=== PATIENT | male | born 1990 | race Caucasian/White ===

== ENCOUNTER 2018-07-27 13:31 | Emergency (ER) | payer OTHER ==
[~2018-07-27] VITALS: Ht 170.1 cm; Wt 60.8 kg
[2018-07-27] MEDS ORDERED: NAPROSYN500 MG PO (14:14)
== END 2018-07-27 13:47 | disposition home or self-care (01) ==
LOC: ED 13:31
DX: S61.411A Laceration without foreign body of right hand, initial encounter (principal); R03.0 Elevated blood-pressure reading, without diagnosis of hypertension; W45.8XXA Other foreign body or object entering through skin, initial encounter; Y93.89 Activity, other specified; Y92.89 Other specified places as the place of occurrence of the external cause; Y99.8 Other external cause status